=== PATIENT | male | born 2000 | race Caucasian/White ===

== ENCOUNTER 2024-12-21 23:01 | Emergency (ER) | payer BC, SELFPAY ==
[2024-12-21 23:05] VITALS: BP 128/76
[2024-12-21] MEDS: ZOFRAN 4 MG IV (23:24)
[2024-12-21 23:36] LABS: % Basophils 0.4 % (0-2); % Immature Granulocytes 0.4 % (0-0.5); % Monocytes 13.6 % (1.7-9.3); % Neutrophils 64.6 % (42.2-75.2); Absolute Monocytes 0.6 10^3/uL (0.1-0.6); Hematocrit 50.3 % (39.0-52.0); Hemoglobin 18.3 g/dL (13.0-18.0); Mean Corp Hgb Conc. 36.4 g/dL (33.0-37.0); Mean Corpuscular Volume 82.5 fL (80.0-94.0); Mean Platelet Volume 10.9 fL (7.4-10.4); Nucleated Red Blood Cells % 0 % (-); Platelet Count 161 10^3/uL (130-400); Red Cell Dist. Width 11.9 % (11.5-14.5); White Blood Cell Count 4.7 10^3/uL (4.8-10.8)
[2024-12-21 23:50] LABS: ALT (SGPT) 48 U/L (0-50); AST (SGOT) 38 U/L (17-59); Albumin 5.1 g/dl (3.5-5.0); Alkaline Phosphatase 80 U/L (38-126); Blood Urea Nitrogen 19 mg/dl (9-20); Calcium 9.4 mg/dl (8.4-10.2); Carbon Dioxide 25 mmol/L (22-30); Chloride 94 mmol/L (98-107); Glucose 163 mg/dl (70-99); Lipase 371 U/L (23-300); Potassium 3.7 mmol/L (3.5-5.1); Sodium 135 mmol/L (135-145); Total Bilirubin 1.4 mg/dl (0.2-1.3); eGFR > 60.00
[2024-12-22 00:27] VITALS: BP 128/83
[2024-12-22 01:00] VITALS: BP 116/73
--- NOTE | 2024-12-22 01:08 | ED.GENMED ---
History of Present Illness
General
Chief Complaint: Abdominal Pain
Source: patient
Exam Limitations: none
Time Seen by Provider: 12/22/24 00:54
History of Present Illness
History of Present Illness:
Patient is a 24-year-old male who started with nausea and vomiting on Thursday. Patient reports he has vomited many times to count has had persistent diarrhea. He feels very nauseous. He does live with other family members have similar symptoms.
He denies any actual fever chills. He denies any abdominal pain.
Past History
Past History
ED Past Medical History: Psychiatric (Anxiety)
ED Past Surgical History: Orthopedic (Right knee ACL repair)
Social History
Tobacco: Non-smoker
Alcohol: None
Drug: Marijuana
Personal: Single
Living: with family
Employment: Employed (manager [employer])
Family History
Family History: Negative Early CAD, CAD or Sudden
Review of Systems
Review of Systems
Allergies reviewed?: Yes
Other source history: family
All Other Systems: ROS reviewed and negative except as documented in HPI and ROS
Constitutional: Reports fatigue; Denies fever
EENT: Reports no symptoms
Respiratory: Reports no symptoms
ABD/GI: Reports nausea, vomiting and diarrhea; Denies abdominal pain
: Reports no symptoms
Musculoskeletal: Reports no symptoms
Skin: Reports no symptoms
Psychiatric: Reports no symptoms
Phy Exam
General Physical Exam
General Presentation: no apparent distress
General age: appears stated age
General Skin: warm and dry
General Mental: alert
General Hydration: dry mucous membranes
Gastrointestinal Exam
Gastrointestinal Exam: non tender and soft
Neurological Exam
Neurological Exam: alert and oriented x3
Musculoskeletal Exam
Musculoskeletal Exam: full ROM
Skin Exam
Skin Exam: normal color and warm/dry
Psychiatric Exam
Psychiatric Exam: normal mood/affect
Course
Orders/Labs/Results
Orders:
Orders
12/21/24 23:17
Ondansetron Injectable [Zofran] 4 mg .ROUTE .STK-MED ONE
12/21/24 23:23
Complete Blood Count/With Diff Urgent
Comprehensive Metabolic Panel Urgent
Lipase Urgent
12/21/24 23:24
Ondansetron Injectable [Zofran] 4 mg IV NOW STA
12/22/24 01:17
0.9% Sodium Chloride 1000 ml [Nss] 1,000 ml IV BOLUS
Abnormal Lab Results
12/21/24
23:23
WBC 4.7 L 10^3/uL
(4.8-10.8)
Hgb 18.3 H g/dL
(13.0-18.0)
MPV 10.9 H fL
(7.4-10.4)
Absolute Lymphs (auto) 1.0 L 10^3/uL
(1.2-3.4)
Monocytes % 13.6 H %
(1.7-9.3)
Chloride 94 L mmol/L
(98-107)
Glucose 163 H mg/dl
(70-99)
Total Bilirubin 1.4 H mg/dl
(0.2-1.3)
Albumin 5.1 H g/dl
(3.5-5.0)
Lipase 371 H U/L
(23-300)
12/21/24 23:23
12/21/24 23:23
Vital Signs
Initial and Last Documented VS:
Initial Vital Signs
Temp Pulse Resp BP Pulse Ox
99.1 F 56 20 128/76 99
12/21/24 23:05 12/21/24 23:05 12/21/24 23:05 12/21/24 23:05 12/21/24 23:05
Last Documented Vital Signs
Temp Pulse Resp BP Pulse Ox
99.1 F 64 13 116/73 94
12/21/24 23:05 12/22/24 01:15 12/22/24 01:15 12/22/24 01:00 12/22/24 01:00
MDM/Problems Addressed
Differential Diagnosis Includes:
not limited to: Viral syndrome dehydration electrolyte abnormality
MDM/Problems Addressed:
Symptoms are consistent with viral syndrome. Patient was given IV Zofran feel less nauseous. Abdomen soft nontender no complaints abdominal pain. We will give fluids and continue to monitor however likely stable for discharge home with outpatient
Zofran. Patient nontachycardic with stable vital signs.
*Critical Care Note
Total Time (30-74mins, 75-104mins- exclusive of procedures): Not Applicable
ED Attending Note
-
Portions of this chart may have been created with voice recognition software.� Occasional wrong word or��sound alike� substitutions may have occurred due to the inherent limitations of voice recognition software.
Discharge Plan
Departure
Patient Disposition: Home (Routine Discharge)
Date of Disposition: 12/22/24
Time of Disposition: 02:05
Patient with high blood pressure during this ER visit?: No
Condition: Fair
Covid-19: Not Applicable
Discharge Problem:
Nausea & vomiting, Diarrhea
Instructions: Diarrhea in teens and adults, Nausea and Vomiting, Adult (DC)
Prescriptions:
New
ondansetron 4 mg tablet,disintegrating
4 mg PO Q8H PRN (Reason: nausea and vomiting) Qty: 10 0RF
Activity Restrictions/Additional Instructions:
As discussed a prescription for Zofran was sent to your pharmacy take as directed for nausea. Clear fluids for the next 24 hours followed by bland solid foods. Closely follow-up with your family doctor return if any worsening concerns.
Interventions
Interventions:
*Risk Screen - Suicide Last Done: 12/22/24 00:27
*General Assessment Last Done: 12/21/24 23:05
*Neglect/Abuse Screening Last Done: 12/22/24 00:27
ED- Fall Risk Assessment Last Done: 12/22/24 00:27
*ED COVID-19 Vaccine History Last Done: 12/22/24 00:27
FJ-Rzbupr-Hoggmgiwjf Assessment Last Done: 12/22/24 00:27
Discharge Date and Time
Print Language: SWAZI
[2024-12-22] MEDS: NSS 1000 IV (01:19)
[2024-12-22 02:00] VITALS: BP 120/72
== END 2024-12-22 02:20 | disposition home or self-care (01) ==
LOC: EMR 23:01
PROVIDERS: EMERGENCY PHYSICIAN Emergency Medicine; FAMILY PHYSICIAN Family Medicine
DX: R11.2 Nausea with vomiting, unspecified (principal); R19.7 Diarrhea, unspecified
CPT/HCPCS: 99283; 96374; 96361; 80053; 83690; 85025